=== PATIENT | female | born 1950 | race Caucasian/White ===

== ENCOUNTER → 2016-09-12 | Outpatient (CLI) | payer OTHER | LOC: CIMAGING 13:21 | PROVIDERS: ATTEND Physician Assistant Medical | DX: M25.512 Pain in left shoulder (principal) | CPT/HCPCS: 73030-PO ==

== ENCOUNTER → 2018-07-20 | Outpatient (CLI) | payer OTHER | LOC: CIMAGING 10:26 | PROVIDERS: ATTEND Physician Assistant Medical | DX: M79.672 Pain in left foot (principal); S92.515A Nondisplaced fracture of proximal phalanx of left lesser toe(s), initial encounter for closed fracture | CPT/HCPCS: 73620-PO ==